=== PATIENT | female | born 1955 | race Caucasian/White ===

== ENCOUNTER 2020-02-11 12:31 | Outpatient (CLI) | payer MEDICARE, SELFPAY ==
--- NOTE | ~2020-02-11 | DEXA_ITS ---
Bone Density Report Name: Michelle Lewis Age: 64 Sex: Female Ethnicity: White Date of : 1955 Indication: postmenopausal; screening for osteoporosis; parental hip fracture; Referring Provider: Crystal, Laura Ko Study: Bone densitometry was performed. Exam Date: February 11, 2020 Accession number: [id number] Bone Density: Region BMD T-score Z-score Classification AP Spine(L1-L4) 1.119 0.7 2.5 Normal Femoral Neck (Left) 0.975 1.1 2.7 Normal Total Hip (Left) 1.132 1.6 2.9 Normal Femoral Neck (Right) 0.942 0.8 2.4 Normal Total Hip (Right) 1.075 1.1 2.4 Normal Femoral Neck Mean 0.958 1.0 2.6 Normal Total Hip Mean 1.103 1.3 2.6 Normal World Health Organization criteria for BMD impression classify patients as: Normal (T-score at or above -1.0), Osteopenia (T-score between -1.0 and -2.5), or Osteoporosis (T-score at or below -2.5). 10-year Fracture Risk: FRAX not reported because: All T-scores for Spine Total, Hip Total, Femoral Neck at or above -1.0 Clinical Information Provided by Patient: Parent has had a hip fracture Smokes Has used the following medications: Vitamin D, Calcium Patient maximum height was 62 No regular weight bearing exercise Does not regularly consume dairy products Drinks caffeinated beverages Number of children 3 Missed period for more than 6 months in a row Impression: The patient has normal bone mass. The patient has risk factors, including: parental hip fracture, smoking. Discussion: LOW RISK OF FRACTURE; BONE DENSITY IS WELL ABOVE THE MINIMUM DESIRABLE LEVEL AND ABOVE AVERAGE FOR AGE AND SEX AT ALL SKELETAL SITES TESTED. This person's bone density is above expected limits for age and sex. This is rarely clinically significant, but should be pursued if there are significant musculoskeletal complaints. The patient should follow a healthful lifestyle (good nutrition with adequate calcium and vitamin D, and appropriate weight-bearing exercise). Follow-Up: Consider repeating this study in 5 years or sooner if there is some new clinical indication. Reported by: Dr. Javier Sena on 02/11/2020 12:59:00 PM. Reviewed, dictated and finalized at location [facility]
== END 2020-02-11 12:32 | disposition home or self-care (01) ==
LOC: CHSIMG 12:36
PROVIDERS: PCP Family Medicine; Visit Provider Physician Assistant
DX: Z78.0 Asymptomatic menopausal state (principal)
CPT/HCPCS: 77080

== ENCOUNTER 2021-01-17 09:58 | Outpatient (RCR) | payer MEDICARE, SELFPAY ==
--- NOTE | 2021-01-17 11:04 | PTOPEVAL ---
Thank you for referring Michelle Lewis to [facility].? The patient is scheduled to be seen for therapy? ____x/week for ___ weeks. Please review, sign, date and return this plan of care TJ. I agree with and certify that the following plan of care is medically necessary. Referring Physician Date Admitting Provider: Attending Provider: Laura Rojas, JADEN Referring Provider: *PT Outpatient Evaluation Start: 01/17/21 10:01 Freq: Status: Active Protocol: Document 01/17/21 10:02 [facility] (Rec: 01/17/21 11:03 ACR [id number]) Therapy Assessment Status Assessment Status Assessment Status Evaluation Evaluation Information Problem Diagnosis B shoulder pain Onset 12/27/20 Subjective Information Patient states about 3 weeks Query Text:As Reported By Patient/ ago her shoulders started to Family bother her. She states that she was having a persistent cough and got on prednisone and after that she started to have intense shoulder pain. Patient states that reaching overhead, getting dressed, cleaning herself, driving, and sleeping are all very difficult for her. The patient states that her goal for therapy is to have no pain and move her arms better. Prior Level of Function Activity Level (Last 3 Months) Occupation retired Hand Dominance Right Activity of Daily Living Ability Independent Indoor/Home Mobility Independent Community Mobility Independent Stairs Ability Independent Functional Cognition (Planning, Shopping Independent , Taking Medications) Cooking Yes Cleaning Yes Laundry Yes Shopping Yes Driving Yes Pain Assessment Timing of Pain Assessment Timing of Pain Assessment Assessment Pain Scale Pain Scale Used Numeric (1 - 10) Self Report Pain Assessment Left Shoulder(s) Reported Pain Level 0 Pain Description Aching,Sharp,Stabbing Greatest Pain Intensity 8 Right Shoulder(s) Reported Pain Level 0 Pain Description Aching,Sharp,Stabbing Greatest Pain Intensity 8 Pain Score Pain Score 0,0: Self Report Interventions Used Interventions Used By Clinicians Activity or ADL's,Electrical
--- NOTE | 2021-02-03 15:36 | PTOPEVAL ---
Thank you for referring Michelle Lewis to [facility].? The patient is scheduled to be seen for therapy? ____x/week for ___ weeks. Please review, sign, date and return this plan of care TJ. I agree with and certify that the following plan of care is medically necessary. Referring Physician Date Admitting Provider: Attending Provider: Laura Rojas, JADEN Referring Provider: *PT Outpatient Evaluation Start: 01/17/21 10:01 Freq: Status: Active Protocol: Document 02/03/21 13:00 [facility] (Rec: 02/03/21 15:36 [facility] [email or web address]) Therapy Assessment Status Assessment Status Assessment Status Progress Evaluation Information Problem Diagnosis B shoulder pain Onset 12/27/20 Subjective Information patient reports continued pain Query Text:As Reported By Patient/ and discomfort in the Family bilateral shoulders worse on the R. she reports she has began taking her humira again and has felt improvements in her hands. she reports she still continues to have moderate to severe pain in the bilateral shoulders. she reports has another does this saturday. patient reports she has yet to attempt any oral anti-inflamatories. Pain Assessment Timing of Pain Assessment Timing of Pain Assessment Assessment Pain Scale Pain Scale Used Numeric (1 - 10) Self Report Pain Assessment Left Shoulder(s) Reported Pain Level 5 Greatest Pain Intensity 8 Right Shoulder(s) Reported Pain Level 6 Greatest Pain Intensity 8 Pain Score Pain Score 5,6: Self Report Interventions Used Interventions Used By Clinicians Activity or ADL's,Dry Needling ,Education,Electrical Stimulation,Exercise,Heat, Manual Therapy Techniques Upper Extremity Range of Motion Scapular/ Shoulder Range of Motion Right Shoulder Flexion - Active 140 Shoulder Medial Rotation - Active 30 Shoulder Lateral Rotation - Active 42 Scapular/Shoulder Range of Motion all measurements taken in Comments supine severe increased pain in the R shoulder with arom and prom mobility Left Shoulder Flexion - Active 143 Shoulder Medial Rotation - Active 45 Shoulder Lateral Rotation - Active 54 Scapular/Shoulder Range of Motion all measurements taken in
--- NOTE | 2021-02-16 14:01 | PTOPEVAL ---
Thank you for referring Michelle Lewis to [facility].? The patient is scheduled to be seen for therapy? ____x/week for ___ weeks. Please review, sign, date and return this plan of care TJ. I agree with and certify that the following plan of care is medically necessary. Referring Physician Date Admitting Provider: Attending Provider: Laura Rojas, JADEN Referring Provider: *PT Outpatient Evaluation Start: 01/17/21 10:01 Freq: Status: Active Protocol: Document 02/16/21 13:05 ACR (Rec: 02/16/21 13:59 ACR [email or web address]) Therapy Assessment Status Assessment Status Assessment Status Progress Evaluation Information Problem Diagnosis B shoulder pain Onset 12/27/20 Subjective Information Patient reports that she has Query Text:As Reported By Patient/ been feeling better, but Family continues to have a lot of pain. She states that she is able to wash her hair with better ease. She reports that reaching overhead is still difficult for her along with getting dressed. Pain Assessment Timing of Pain Assessment Timing of Pain Assessment Assessment Pain Scale Pain Scale Used Numeric (1 - 10) Self Report Pain Assessment Left Shoulder(s) Reported Pain Level 3 Greatest Pain Intensity 3 Right Shoulder(s) Reported Pain Level 5 Greatest Pain Intensity 5 Pain Score Pain Score 3,5: Self Report Interventions Used Interventions Used By Clinicians Activity or ADL's,Exercise Upper Extremity Range of Motion Scapular/ Shoulder Range of Motion Right Shoulder Flexion - Active 144 Shoulder Medial Rotation - Active 43 Shoulder Medial Rotation - Active R iliac crest Query Text:Reach Behind the Back Shoulder Lateral Rotation - Active 51 Shoulder Lateral Rotation - Active top of head Query Text:Reach Behind the Head Left Shoulder Flexion - Active 157 Shoulder Medial Rotation - Active 51 Shoulder Medial Rotation - Active L glute Query Text:Reach Behind the Back Shoulder Lateral Rotation - Active 61 Shoulder Lateral Rotation - Active L upper trap Query Text:Reach Behind the Head Upper Extremity Muscle Strength Testing Scapular/Shoulder Right Shoulder Flexion Strength 3+ Fair + Shoulder Abduction Strength 3+ Fair + Shoulder Medial Rotation Strength 4 Good Shoulder Lateral Rotation Strength 3+ Fair + Left Shoulder Flexion Strength 4- Good - Shoulder Abduction Strength 3+ Fair + Shoulder Medial Rotation Strength 4 Good Shoulder Lateral Rotation Strength 3+ Fair + General Exercise General Exerc
--- NOTE | 2021-03-22 07:20 | PTOPEVAL ---
Thank you for referring Michelle Lewis to [facility].? The patient is scheduled to be seen for therapy? ____x/week for ___ weeks. Please review, sign, date and return this plan of care TJ. I agree with and certify that the following plan of care is medically necessary. Referring Physician Date Admitting Provider: Attending Provider: Laura Rojas, JADEN Referring Provider: *PT Outpatient Evaluation Start: 01/17/21 10:01 Freq: Status: Active Protocol: Document 03/21/21 11:03 ACR (Rec: 03/21/21 12:06 ACR [email or web address]) Therapy Assessment Status Assessment Status Assessment Status Progress Evaluation Information Problem Diagnosis B shoulder pain Onset 12/27/20 Subjective Information Patient states that she feels Query Text:As Reported By Patient/ therapy is really helping her. Family She states that the L shoulder is doing a lot better , but the R shoulder causes her difficulty. The patient states it is difficult to get dressed, reach overhead, and continues to have increased pain with any movements. Pain Assessment Timing of Pain Assessment Timing of Pain Assessment Assessment Pain Scale Pain Scale Used Numeric (1 - 10) Self Report Pain Assessment Left Shoulder(s) Reported Pain Level 0 Greatest Pain Intensity 2 Right Shoulder(s) Reported Pain Level 3 Greatest Pain Intensity 3 Pain Score Pain Score 0,3: Self Report Interventions Used Interventions Used By Clinicians Activity or ADL's,Electrical Stimulation,Exercise,Heat Upper Extremity Range of Motion Scapular/ Shoulder Range of Motion Right Shoulder Flexion - Active 120 Shoulder Medial Rotation - Active 68 Shoulder Medial Rotation - Active R iliac crest Query Text:Reach Behind the Back Shoulder Lateral Rotation - Active 25 Shoulder Lateral Rotation - Active top of head Query Text:Reach Behind the Head Left Shoulder Flexion - Active 157 Shoulder Medial Rotation - Active 58 Shoulder Medial Rotation - Active L lumbar region Query Text:Reach Behind the Back Shoulder Lateral Rotation - Active 61 Shoulder Lateral Rotation - Active L upper trap Query Text:Reach Behind the Head Upper Extremity Muscle Strength Testing Scapular/Shoulder Right Shoulder Flexion Strength 3+ Fair + Shoulder Abduction Strength 3+ Fair + Shoulder Medial Rotation Strength 5 Normal Shoulder Lateral Rotation Strength 3+ Fair + Left Shoulder Flexion Strength 4- Good - Shoulder Abduction Strength
== END 2021-04-20 23:59 | disposition home or self-care (01) ==
LOC: CHSPT 09:58
PROVIDERS: PCP Family Medicine; Visit Provider Physician Assistant
DX: M25.511 Pain in right shoulder (principal); M25.512 Pain in left shoulder
CPT/HCPCS: 97014; 97110; 97140; 97161; G0283

== ENCOUNTER 2021-04-24 10:10 | Outpatient (RCR) | payer MEDICARE, SELFPAY | END 2021-05-08 13:44 | disposition home or self-care (01) | LOC: CHSPT 10:10 | PROVIDERS: PCP Family Medicine; Visit Provider Physician Assistant | DX: M25.511 Pain in right shoulder (principal); M25.512 Pain in left shoulder | CPT/HCPCS: 97014; 97110; G0283 ==

== ENCOUNTER 2021-08-16 08:12 | Outpatient (RCR) | payer MEDICARE, SELFPAY ==
[2021-08-16 08:00] VITALS: BP_SYST 50
--- NOTE | 2021-08-16 13:18 | PTOPEVAL ---
Thank you for referring Michelle Lewis to [facility] [place].? The patient is scheduled to be seen for therapy? ____x/week for ___ weeks. Please review, sign, date and return this plan of care TJ. I agree with and certify that the following plan of care is medically necessary. Referring Physician Date Admitting Provider: Attending Provider: João Rosario Referring Provider: ZaraPT Outpatient Evaluation Start: 08/16/21 08:06 Freq: Status: Active Protocol: Document 08/16/21 08:00 [facility] (Rec: 08/16/21 09:20 [facility] [id number]) Therapy Assessment Status Assessment Status Assessment Status Evaluation Evaluation Information Problem Diagnosis RCT Sx (R Shoulder) Onset 07/14/21 Additional Evaluation Detail quick dash = 70% functionally declined Subjective Information Pt reports she had RTC repair Query Text:As Reported By Patient/ on 07/14/21. she reports that Family since surgery she has had trouble sleeping and has been alternating between sleeping in a recliner and her bed. Sleeping in either makes it so that she is unable to sleep. She says that she should be able to be out of her sling in a week, and will check with her surgeon regarding this. Prior Level of Function Comments Additional Prior Level of Function Prior to her surgery, she was Comments able to perform all activities with her arm, but had increased pain with certain overhead movements. Pain Assessment Timing of Pain Assessment Timing of Pain Assessment Pre-Treatment Pain Scale Pain Scale Used Numeric (1 - 10) Self Report Pain Assessment Right Shoulder(s) Reported Pain Level 0 Greatest Pain Intensity 4 Pain Score Pain Score 0: Self Report Interventions Used Interventions Used By Clinicians Heat,Ice,Rest Pain Relief Interventions Used By Ice Patient Upper Extremity Range of Motion Scapular/ Shoulder Range of Motion Right Shoulder Flexion - Passive 75 Shoulder Abduction - Passive 50 Shoulder Lateral Rotation - Passive 25 Posture Posture Sitting Position Posture Evaluation View Anterior Head/C-Spine Posture Forward Head Thoracic Spine Posture Increased Kyphosis Shoulder Posture (L) Elevated,(R) Elevated Additional Posture Comments at rest patient is wearing her slin
[2021-09-05 16:00] VITALS: BP_SYST 90
--- NOTE | 2021-09-05 17:57 | PTOPEVAL ---
Thank you for referring Michelle Lewis to [facility].? The patient is scheduled to be seen for therapy? ____x/week for ___ weeks. Please review, sign, date and return this plan of care TJ. I agree with and certify that the following plan of care is medically necessary. Referring Physician Date Admitting Provider: Attending Provider: João Rosario Referring Provider: ZaraPT Outpatient Evaluation Start: 08/16/21 08:06 Freq: Status: Active Protocol: Document 09/05/21 16:00 [facility] (Rec: 09/05/21 17:29 [facility] [id number]) Therapy Assessment Status Assessment Status Assessment Status Re-evaluation Evaluation Information Problem Diagnosis RCT Sx (R Shoulder) Onset 07/14/21 Additional Evaluation Detail quick dash = 54% functionally declined Subjective Information Pt reports that her shoulder Query Text:As Reported By Patient/ is doing better. She can dress Family herself more, but is still unable to hook her bra and dry off herself after showering. She states that she has been cooking as well, primarily with her L hand, but has been encouraging herself to use her R arm when cooking more. She still would like to make progress in how much she can move her arm. Pain Assessment Timing of Pain Assessment Timing of Pain Assessment Pre-Treatment Pain Scale Pain Scale Used Numeric (1 - 10) Self Report Pain Assessment Right Shoulder(s) Reported Pain Level 3 Pain Score Pain Score 3: Self Report Interventions Used Interventions Used By Clinicians Activity or ADL's,Education, Exercise Upper Extremity Range of Motion Scapular/ Shoulder Range of Motion Left Shoulder Flexion - Active 140 Shoulder Medial Rotation - Active L1 Query Text:Reach Behind the Back Shoulder Lateral Rotation - Active T3 Query Text:Reach Behind the Head Right Shoulder Flexion - Active 55 Shoulder Flexion - Passive 120 Shoulder Abduction - Passive 90 Shoulder Medial Rotation - Active Glute Query Text:Reach Behind the Back Shoulder Lateral Rotation - Passive 45 Shoulder Lateral Rotation - Active Cheek Query Text:Reach Behind the Head Upper Extremity Muscle Strength Testing Scapular/Shoulder Right Shoulder Flexion Strength 3- Fair - Left Shoulder Flexion Strength 4+ Good + Shoulder Medial Rotation Strength 4+ Good + Shoulder Lateral Rotation Strength 4+ Good + General Exerc
--- NOTE | 2021-09-14 16:04 | PCPTNOTE ---
09/14/21 Dr. Rosario Mrs. Lewis has attended 11 skilled therapy sessions thus far. She presents with continued tightness and deficits in R shoulder PROM and AROM. as it stands today, she measures 122 degrees PROM R shoulder flexion, 85 degrees AROM R shoulder flexion, 80 degrees PROM R shoulder abduction, and 25 degree PROM R shoulder ER with her arm at side. Her therapy sessions have focused on passive, active assisted, and active ROM exercise to increase her mobility, as well as, modalities for pain reduction. I fear she may be beginning to settle into an adhesive capsulitis of the R shoulder. For any further needs please call my office at [phone]. We will continue to work on pain reduction and ROM of the R shoulder at this time. Sincerely, Olivier Everett DPT
[2021-10-03 14:18] VITALS: BP_SYST 90
--- NOTE | 2021-10-03 15:15 | PTOPEVAL ---
Thank you for referring Michelle Lewis to [facility].? The patient is scheduled to be seen for therapy? ____x/week for ___ weeks. Please review, sign, date and return this plan of care TJ. I agree with and certify that the following plan of care is medically necessary. Referring Physician Date Admitting Provider: Attending Provider: João Rosario Referring Provider: RANDALL Outpatient Evaluation Start: 08/16/21 08:06 Freq: Status: Active Protocol: Document 10/03/21 14:18 [facility] (Rec: 10/03/21 15:05 [facility] [email or web address]) Therapy Assessment Status Assessment Status Assessment Status Re-evaluation Evaluation Information Problem Diagnosis RCT Sx (R Shoulder) Onset 07/14/21 Subjective Information patient reports she feels Query Text:As Reported By Patient/ Alright this date. she Family reports her pain is lower today, but reports she was recently on prednisone for 5 days for her asthma. she reports she continues to have difficulty reaching behind her body to wash her back, and lifting any significant weight for home and self care. Pain Assessment Timing of Pain Assessment Timing of Pain Assessment Assessment Pain Scale Pain Scale Used Numeric (1 - 10) Self Report Pain Assessment Right Shoulder(s) Reported Pain Level 2 Greatest Pain Intensity 2 Pain Score Pain Score 2: Self Report Interventions Used Interventions Used By Clinicians Activity or ADL's,Education, Electrical Stimulation, Exercise,Heat Upper Extremity Range of Motion Scapular/ Shoulder Range of Motion Right Shoulder Flexion - Active 110 Shoulder Flexion - Passive 125 Shoulder Abduction - Passive 90 Shoulder Medial Rotation - Active Glute ipsilateral with trunk Query Text:Reach Behind the Back flex and sidebend compensation Shoulder Lateral Rotation - Passive 45 Shoulder Lateral Rotation - Active R shoulder passive ER measured Query Text:Reach Behind the Head in 90 degrees abduction occiput ipsilateral side with head turn and flexion compensation with poor shoulder abduction/extension Upper Extremity Muscle Strength Testing Scapular/Shoulder Right Shoulder Flexion Strength 3- Fair - General Exercise General Exercises Exercise Description Ther Ex: Query Text:Record Sets, Reps, - R shoulder PROM x20 minutes Resistance, and Position - shoulder pu
--- NOTE | 2021-11-02 13:24 | PTOPEVAL1 ---
Evaluation Information Assessment Status Re-evaluation Diagnosis s/p R shoulder RTC surgery Onset 07/14/21 Subjective Information patient reports she does not follow up with her MD for antoht 2-3 weeks. she reports she continues to have pain in the R shoulder. she did fall on the R shoulder a few weeks ago. she reports she would like to continue skilled PT to improve her mobility and work on pain reduction. Reported Pain Level Pain Score 4: Self Report Assessment PT Clinical Summary mrs. long continues to display weakness and decreased rom of the R shoulder. she has improved rom and strength of the R shoulder since her last re-evaluation. however, pain is stil present and patient presents with capsular tightness of the R shoulder. she would do well to continue skilled PT to continue to work on progress towards goals and return to prior level mobility. patient follows up with MD in 2 weeks regarding continued plan of care and next steps. Plan of Care Interventions Hot Pack/Cold Pack,Manual Therapy,Patient/ Caregiver Educati,Therapeutic Activities, Therapeutic Exercise PT Services Indicated Yes Treatment Frequency and continue skilled PT 2x weekly for 4 more visits Duration These treatments will address the objective and functional deficits as defined above. The patient will be advanced safely and appropriately in order for the patient to progress towards his/her prior level of function. Additional exercises will be introduced and as well as a comprehensive home exercise program upon discharge, if needed, ?to ensure carryover of functional gains achieved in the clinic. This treatment plan has been reviewed and agreement upon by the patient.
[2021-11-16 08:02] VITALS: BP_SYST 130
--- NOTE | 2021-11-16 08:58 | PTOPPROG ---
Assessment and note entered by Yovana Timmons, PT Evaluation Information Assessment Status Progress Diagnosis s/p R shoulder RTC surgery Onset 07/14/21 Subjective Information Patient reports she has no pain in her right shoulder just soreness since she fell. She also gets sore after getting stretched in PT. She is able to do most ADLs but still has mild limitations with lifting overhead. She feels she has improved 90% overall. She will see the MD on and feels she is ready to be discharged. Assessment PT Clinical Summary Michelle has completed 29 skilled PT visits following a right rotator cuff repair on 07/14/21. She is reporting no pain in the right shoulder recently just soreness after stretching. She reports limitations with overhead lifting but all other ADLs are back to normal. She reports a 90% overall improvement at this time. She objectively demonstrates improved right shoulder AROM, PROM, and strength overall however, she continues to have moderate deficits in all these areas. She may continue to benefit from skilled PT to further address these limitations. She will see her surgeon on 11/20/21. Plan of Care Interventions Electrical Stimulation,Hot Pack/Cold Pack,Manual Therapy,Therapeutic Activities,Therapeutic Exercise PT Services Indicated Yes These treatments will address the objective and functional deficits as defined above. The patient will be advanced safely and appropriately in order for the patient to progress towards his/her prior level of function. Additional exercises will be introduced and as well as a comprehensive home exercise program upon discharge, if needed, ?to ensure carryover of functional gains achieved in the clinic. This treatment plan has been reviewed and agreement upon by the patient.
== END 2021-12-12 18:00 | disposition home or self-care (01) ==
LOC: CHSPT 08:12
DX: M75.121 Complete rotator cuff tear or rupture of right shoulder, not specified as traumatic (principal); M75.01 Adhesive capsulitis of right shoulder
CPT/HCPCS: 97014; 97110; 97140; 97161; 97530; G0283

== ENCOUNTER 2021-11-23 09:08 | Outpatient (RCR) | payer MEDICARE, SELFPAY ==
[2021-11-23 09:05] VITALS: BP_SYST 130
[2021-11-23 09:14] VITALS: BP_SYST 140
--- NOTE | 2021-11-23 10:08 | PTOPPROG ---
Assessment and note entered by Yovana Timmons, PT Evaluation Information Assessment Status Progress Diagnosis s/p R RTC repair Onset 07/14/21 Subjective Information Michelle reports she saw her surgeon on 11/20/21 and he was happy that she was doing better but thought she could work on her overhead reaching more so, he recommended PT 2 times a week for another month . She is reporting soreness in the right shoulder but no real pain. She notes she is having difficulty laying on her right side again. She also has ongoing difficulty reaching overhead and behind her head. Assessment PT Clinical Summary Michelle returns to PT this date with new orders from her surgeon to continue skilled PT 2 times a week for another month. She is reporting soreness in the right shoulder and difficulty reaching overhead, behind her head, and sleeping on the right side. She objectively demonstrates ongoing deficits in right shoulder AROM, right shoulder PROM, and right shoulder strength leading to ADL deficits including bathing/grooming the back of her head, reaching/lifting into overhead cabinets, and sleeping. She will continue to benefit from skilled PT to address these physical and functional limitations. PT Clinical Summary Michelle has completed 29 skilled PT visits following a right rotator cuff repair on 07/14/21. She is reporting no pain in the right shoulder recently just soreness after stretching. She reports limitations with overhead lifting but all other ADLs are back to normal. She reports a 90% overall improvement at this time. She objectively demonstrates improved right shoulder AROM, PROM, and strength overall however, she continues to have moderate deficits in all these areas. She may continue to benefit from skilled PT to further address these limitations. She will see her surgeon on 11/20/21. Plan of Care Interventions Hot Pack/Cold Pack,Manual Therapy,Patient/ Caregiver Educati,Therapeutic Activities, Therapeutic Exercise Interventions Therapeutic Exercise,Manual Therapy,Therapeutic Activities,Hot Pack/Cold Pack,Electrical Stimulation PT Services Indicated Yes PT Services Indicated Yes Treatment Frequency and 2 times a week for 8 visits
--- NOTE | 2021-11-23 10:11 | PTOPEVAL1 ---
Assessment and note entered by Yovana Timmons, PT Evaluation Information Assessment Status Progress Diagnosis s/p R RTC repair Onset 07/14/21 Subjective Information Michelle reports she saw her surgeon on 11/20/21 and he was happy that she was doing better but thought she could work on her overhead reaching more so, he recommended PT 2 times a week for another month . She is reporting soreness in the right shoulder but no real pain. She notes she is having difficulty laying on her right side again. She also has ongoing difficulty reaching overhead and behind her head. Reported Pain Level Pain Score 0: Self Report Pain Score 0: Self Report Additional Pain Score Comments R shoulder is sore but pain free. Assessment PT Clinical Summary Michelle returns to PT this date with new orders from her surgeon to continue skilled PT 2 times a week for another month. She is reporting soreness in the right shoulder and difficulty reaching overhead, behind her head, and sleeping on the right side. She objectively demonstrates ongoing deficits in right shoulder AROM, right shoulder PROM, and right shoulder strength leading to ADL deficits including bathing/grooming the back of her head, reaching/lifting into overhead cabinets, and sleeping. She will continue to benefit from skilled PT to address these physical and functional limitations. PT Clinical Summary Michelle has completed 29 skilled PT visits following a right rotator cuff repair on 07/14/21. She is reporting no pain in the right shoulder recently just soreness after stretching. She reports limitations with overhead lifting but all other ADLs are back to normal. She reports a 90% overall improvement at this time. She objectively demonstrates improved right shoulder AROM, PROM, and strength overall however, she continues to have moderate deficits in all these areas. She may continue to benefit from skilled PT to further address these limitations. She will see her surgeon on 11/20/21. Plan of Care Interventions Hot Pack/Cold Pack,Manual Therapy,Patient/ Caregiver Educati,Therapeutic Activities, Therapeutic Exercise Interventions Therapeutic Exercise,Manual Therapy,Therapeutic Activities,Hot Pack/Cold Pack,Electrical St
== END 2022-02-21 23:59 | disposition home or self-care (01) ==
LOC: CHSPT 09:08
DX: M75.121 Complete rotator cuff tear or rupture of right shoulder, not specified as traumatic (principal); M75.01 Adhesive capsulitis of right shoulder
CPT/HCPCS: 97110; 97140; 97530

== ENCOUNTER 2022-05-29 14:28 | Outpatient (RCR) | payer MEDICARE, SELFPAY ==
--- NOTE | 2022-05-29 15:30 | PTOPEVAL1 ---
Assessment and note entered by Ivone Boudreaux DPT Evaluation Information Assessment Status Evaluation Diagnosis low back pain Onset 05/24/22 Subjective Information Patient started having L sided low back pain about 2 months ago. She reports around that same time she was having gallbladder attacks. She reports it was so bad she could not get out of the chair. She reports pain was localized and not moving. She does not reacall an injury. She started a muscle relaxer last week and since then pain has decreased. Patient has difficulty getting up out of a chair, standing for long periods of time and sleeping. She is retired but does keep up with her own house work. Patient has gallbladder removal surgery on 06/08/22 Reported Pain Level Pain Score 0: Self Report Assessment PT Clinical Summary Patient is a 67 year old female who presents to PT with L sided low back pain. She demonstrates decreased LE strength and flexibility as well as impaired posture. She has had an improvement in pain after starting a muscle relaxer but has difficulty with standing up from a chair, standing for prolonged periods of time and sleeping without disturbance. She would benefit from skilled PT to address impairments and return to PLOF. Plan of Care Interventions Electrical Stimulation,Gait Training,Hot Pack/Cold Pack,Manual Therapy,Mechanical Traction,Neuro Re- education,Patient/Caregiver Educati,Therapeutic Activities,Therapeutic Exercise PT Services Indicated Yes Treatment Frequency and 2x weekly for 10 visits Duration These treatments will address the objective and functional deficits as defined above. The patient will be advanced safely and appropriately in order for the patient to progress towards his/her prior level of function. Additional exercises will be introduced and as well as a comprehensive home exercise program upon discharge, if needed, ?to ensure carryover of functional gains achieved in the clinic. This treatment plan has been reviewed and agreement upon by the patient.
--- NOTE | 2022-07-12 12:40 | PTOPPROG ---
Assessment and note entered by JT File, PT Evaluation Information Assessment Status Evaluation Diagnosis low back pain Onset 05/24/22 Subjective Information patient reports she is sore today in the lower back. she reports she had been doing well until she cleaned her house yesterday. now she has pain/ soreness in the lower back and moving slow. Assessment PT Clinical Summary mrs. long presents to skilled PT services for her 10th skilled therapy visit. up until yesterday /today she was progressing well and had little to no pain. however, after cleaning house yesterday she has pain in the lower back and is moving slow. she has met goals for HEP performance and STS performance, but continues to lack achievement of remaining goals. she would benefit from continuation of current POC to achieve her remaining goals and improve her quality of life. Plan of Care Interventions Electrical Stimulation,Gait Training,Hot Pack/Cold Pack,Manual Therapy,Mechanical Traction,Neuro Re- education,Patient/Caregiver Educati,Therapeutic Activities,Therapeutic Exercise PT Services Indicated Yes Treatment Frequency and continue skilled PT per initial POC for 2 more Duration visits These treatments will address the objective and functional deficits as defined above. The patient will be advanced safely and appropriately in order for the patient to progress towards his/her prior level of function. Additional exercises will be introduced and as well as a comprehensive home exercise program upon discharge, if needed, ?to ensure carryover of functional gains achieved in the clinic. This treatment plan has been reviewed and agreement upon by the patient.
--- NOTE | 2022-07-19 09:03 | PTOPDC ---
Assessment and note entered by JT File, PT Evaluation Information Assessment Status Discharge Diagnosis low back pain Onset 05/24/22 Subjective Information patient reports she feels pretty good this date. however, she continues to have around 3/10 pain in the lower back since cleaning her house last week. Reported Pain Level Pain Score 3: Self Report Assessment PT Clinical Summary mrs. long presents to skilled PT for her 12th skilled therapy visit. she has had a slight increase in soreness in the lower back over the last week due to a day of deep home cleaning. she has met all goals for skilled PT, except those related to 5/5 hip strength, pain, and hamstrings flexibility. she was educated on exercises to continue moving forward with her HEP, including the modified chuck hernandez core program. she will DC skilled PT today and continue with HEP independent at this time. Plan of Care PT Services Indicated Yes
== END 2022-07-19 11:46 | disposition home or self-care (01) ==
LOC: CHSPT 14:28
PROVIDERS: Visit Provider Nurse Practitioner Family
DX: M54.42 Lumbago with sciatica, left side (principal)
CPT/HCPCS: 97014; 97110; 97140; 97161; G0283

== ENCOUNTER 2022-11-12 15:51 | Outpatient (CLI) | payer MEDICARE, SELFPAY ==
--- NOTE | ~2022-11-12 | XR_ITS ---
EXAMINATION: XR chest 2V Exam Date/Time: 11/12/2022 16:15 CDT HISTORY: COUGH AND CONGESTION X 2 WEEKS Comparison: None. RESULT: Lines, tubes, and devices: Right upper quadrant clips. Lungs and pleura: Diffuse reticulonodular opacities. Calcified atheromatous disease. Cardiomediastinal silhouette: Mild arch calcification. Small hiatal hernia. Other: No acute osseous or upper abdominal finding. IMPRESSION: Interstitial edema versus respiratory bronchiolitis. Reviewed, dictated and finalized at location [facility].
== END 2022-11-12 15:52 | disposition home or self-care (01) ==
LOC: CHSIMG 15:57
PROVIDERS: PCP Family Medicine
DX: J06.9 Acute upper respiratory infection, unspecified (principal); R91.8 Other nonspecific abnormal finding of lung field
CPT/HCPCS: 71046

== ENCOUNTER 2023-08-23 10:22 | Outpatient (CLI) | payer MEDICARE, SELFPAY ==
--- NOTE | 2023-08-26 08:33 | WPDHOLTEREM ---
Holter/Event Monitor Holter/Event Monitor Date of procedure: 08/23/23 Holter/Event Procedure: 48 Hr Holter Monitor Indications: Irregular heart beat Conclusion: 1. 48 hour holter monitior on 08/23/23. 2. Underlying rhythm is sinus rhythm. HR range 65-103 bpm; average HR 75 bpm. 3. There are 87 premature supraventricular complexes, 4 supraventricular couplets and 1 supraventricular triplet. No supraventricular tachycardia. 4. There are 9,049 premature ventricular complexes, 1 ventricular couplet, 2,032 ventricular trigeminy. No ventricular tachycardia. 5. No sinoatrial or atrioventricular blocks. No significant pauses greater than 2 seconds. 6. No symptoms available for correlation.
== END 2023-08-23 10:23 | disposition home or self-care (01) ==
PROVIDERS: PCP Physician Assistant; Visit Provider Physician Assistant
DX: I49.9 Cardiac arrhythmia, unspecified (principal)
CPT/HCPCS: 93225; 93226

== ENCOUNTER 2023-09-03 11:00 | Outpatient (RCR) | payer MEDICARE, SELFPAY ==
[2023-08-05 15:56] VITALS: BP 163/78; PULSE 63; RESP 18; O2SAT 95; BMI 31.5
== END 2023-09-11 09:04 | disposition home or self-care (01) ==
PROVIDERS: PCP Physician Assistant; Visit Provider Physician Assistant
DX: J84.10 Pulmonary fibrosis, unspecified (principal); R06.00 Dyspnea, unspecified; R53.83 Other fatigue
CPT/HCPCS: G0239